=== PATIENT | female | born 1930 | race Two or more races ===

== ENCOUNTER 2019-11-01 10:02 | Inpatient (IN) | payer OTHER, MEDICAID ==
[~2019-11-01] VITALS: Ht 167.6 cm; Wt 80.5 kg
[2019-11-01] MEDS ORDERED: FUROSEMIDE 20 MG/2 ML VIAL IV ONE (10:15)
[2019-11-01 10:38] LABS: Basophils # (auto) 0 10 ^3/uL (0-0.2); Basophils % (auto) 0.5 % (0.0-2.0); Eosinophils # (auto) 0.1 10 ^3/uL (0-0.8); Eosinophils % (auto) 0.9 % (0.0-7.0); Hemoglobin 11.5 g/dL (13.5-17.5); Lymphocytes # (auto) 0.8 10 ^3/uL (0.4-5.4); Lymphocytes % (auto) 8.7 % (10.0-50.0); Mean Corpuscular Hemoglobin 27.3 pg (28.0-32.0); Mean Corpuscular Volume 85.4 fL (80.0-100.0); Monocytes # (auto) 0.8 10 ^3/uL (0-1.3); Monocytes % (auto) 8.5 % (0.0-12.0); Neutrophils # (auto) 7.5 10 ^3/uL (1.6-8.6); Neutrophils % (auto) 81.4 % (37.0-80.0); Platelet Count (auto) 210 10^3/uL (140-450); Red Blood Cells 4.21 10^6/uL (4.5-5.90); Red Cell Distribution Width 14.7 % (11.8-14.3); White Blood Cell 9.2 10^3/uL (4.4-10.8)
[2019-11-01 10:53] LABS: Albumin 3.6 g/dL (3.4-5.0); Anion Gap 7 (5-15); Blood Urea Nitrogen 15 mg/dL (7-18); Calcium 8.4 mg/dL (8.5-10.1); Carbon Dioxide 24 mmol/L (21-32); Chloride 107 mmol/L (98-107); Glucose 91 mg/dL (74-106); Potassium 4.2 mmol/L (3.5-5.1); Sodium 138 mmol/L (136-145)
[2019-11-01 11:00] LABS: Alanine Aminotransferase 19 U/L (16-61); Alkaline Phosphatase 72 U/L (45-117); Aspartate Aminotransferase 23 U/L (15-37); BUN/Creatinine Ratio 14.9; Bilirubin, Total 1.6 mg/dL (0.2-1.0); GFR African American 90 mL/min; GFR Non-African American 74 mL/min; Total Protein 7.2 g/dL (6.4-8.2)
[2019-11-01 11:55] LABS: Urine WBC None Seen /hpf (0 - 3)
[2019-11-01] MEDS ORDERED: HYDROmorphone HCL 2 MG/ML VL IV ONE (12:00)
[2019-11-01] MEDS ORDERED: ONDANSETRON HCL 4 MG/2 ML VIAL IV ONE (12:00)
[2019-11-01 12:06] LABS: Urine Bacteria NONE SEEN /hpf (None Seen); Urine Blood Negative /uL (Negative); Urine Specific Gravity 1.006 (1.001-1.035)
[2019-11-01] MEDS ORDERED: MORPHINE SULF INJ 2 MG/ML SYRINGE 1ML IV PRN (12:15)
[2019-11-01] MEDS ORDERED: NITROGLYCERIN 0.4 MG SL TAB SL PRN (12:15)
[2019-11-01] MEDS ORDERED: hydrALAZINE HCL 20 MG/ML VL IV PRN (12:30)
[2019-11-01] MEDS ORDERED: ONDANSETRON HCL 4 MG/2 ML VIAL IV PRN (12:30)
[2019-11-01] MEDS ORDERED: ACETAMINOPHEN 500 MG TAB PO PRN (12:30)
[2019-11-01 16:33] VITALS: BP 145/81
[2019-11-01 18:02] VITALS: BP 145/81
--- NOTE | 2019-11-01 19:33 | NUR ---
Opening Shift Note Assumed care of patient, awake and alert. No S/S of distress/SOB or pain. Instructed on POC and to call for assist PRN, will continue to monitor for changes Q1hr and PRN.
[2019-11-01] MEDS ORDERED: METO25TA93 PO (19:54)
[2019-11-01] MEDS ORDERED: MEMA1TAB5 PO (19:54)
[2019-11-01] MEDS ORDERED: LEVO25TA6 PO (19:54)
[2019-11-01] MEDS ORDERED: PANT1INJ3 IV (19:54)
[2019-11-01] MEDS ORDERED: ASPI-404 PO (19:54)
[2019-11-01] MEDS ORDERED: POTA10TA51 PO (19:54)
[2019-11-01] MEDS ORDERED: FURO1TAB31 PO (19:54)
[2019-11-01] MEDS ORDERED: PAR20T PO (19:54)
--- NOTE | 2019-11-01 19:55 | NUR ---
RE Pain Patient stated that headache went away, no pain at the moment.
[2019-11-01 20:00] VITALS: BP 137/69
[2019-11-01 21:44] VITALS: BP 137/69
[2019-11-01] MEDS: METOPROLOL TARTRATE 25 MG TAB PO SCH (21:48)
[2019-11-01] MEDS ORDERED: ATORVASTATIN 20 MG TAB PO SCH (22:00)
[2019-11-02 05:18] VITALS: BP 150/74
--- NOTE | 2019-11-02 05:29 | NUR ---
EKG EKG done, patient tolerated well.
[2019-11-02 06:34] LABS: Basophils # (auto) 0 10 ^3/uL (0-0.2); Basophils % (auto) 0.6 % (0.0-2.0); Eosinophils # (auto) 0.1 10 ^3/uL (0-0.8); Eosinophils % (auto) 1.5 % (0.0-7.0); Hematocrit 33.8 % (36.0-46.0); Hemoglobin 10.8 g/dL (12.2-16.2); Lymphocytes # (auto) 0.7 10 ^3/uL (0.4-5.4); Lymphocytes % (auto) 15.3 % (10.0-50.0); Mean Corpuscular Hemoglobin 27.3 pg (28.0-32.0); Mean Corpuscular Hgb Conc. 32.1 g/dL (32.0-36.0); Mean Corpuscular Volume 85.1 fL (80.0-100.0); Monocytes # (auto) 0.6 10 ^3/uL (0-1.3); Monocytes % (auto) 11.8 % (0.0-12.0); Neutrophils # (auto) 3.4 10 ^3/uL (1.6-8.6); Neutrophils % (auto) 70.8 % (37.0-80.0); Platelet Count (auto) 179 10^3/uL (140-450); Red Blood Cells 3.97 10^6/uL (4.0-5.20); Red Cell Distribution Width 14.4 % (11.8-14.3); White Blood Cell 4.8 10^3/uL (4.4-10.8)
[2019-11-02 06:52] LABS: Albumin 3.1 g/dL (3.4-5.0); BUN/Creatinine Ratio 15.3; Calcium 8.3 mg/dL (8.5-10.1); Potassium 3.6 mmol/L (3.5-5.1)
[2019-11-02 06:54] LABS: Bilirubin, Total 1.9 mg/dL (0.2-1.0); Total Protein 6.3 g/dL (6.4-8.2)
--- NOTE | 2019-11-02 07:13 | NUR ---
Closing Note Endorsed care to day shift nurse.
[2019-11-02 08:00] VITALS: BP 134/93
[2019-11-02 09:00] VITALS: BP 134/93
[2019-11-02] MEDS: METOPROLOL TARTRATE 25 MG TAB PO SCH (09:42)
[2019-11-02] MEDS ORDERED: FUROSEMIDE 20 MG/2 ML VIAL IV SCH (10:00)
[2019-11-02] MEDS ORDERED: ASPirin-EC 81 mg tab PO SCH (10:00)
[2019-11-02] MEDS ORDERED: LISINOPRIL 10 MG TAB PO SCH (10:00)
[2019-11-02] MEDS ORDERED: FUROSEMIDE 100 MG/10ML VIAL IV SCH (10:00)
[2019-11-02] MEDS ORDERED: FAMOTIDINE 20 MG TAB PO SCH (10:00)
[2019-11-02] MEDS ORDERED: MEMANTINE HCL 5 MG TAB PO SCH (10:00)
[2019-11-02 12:42] VITALS: BP 125/74
--- NOTE | 2019-11-02 12:55 | NUR ---
PATIENTS DAUGHTER, MACHELLE, CALLED FOR UPDATE ON PATIENTS STATUS. PROVIDED UPDATED INFO.
--- NOTE | 2019-11-02 13:30 | NUR ---
DR LAST BEDSIDE WITH PATIENT DISCUSSING PLAN OF CARE
[2019-11-02 14:50] VITALS: BP 125/74
--- NOTE | 2019-11-02 15:00 | NUR ---
PATIENT AND PATIENTS DAUGHTER, MACHELLE, HAVE DECLINED HOME HEALTH SERVICE FOR SAFETY EVAL AT HOME. CHRISTI HANKINS IN [facility].
--- NOTE | 2019-11-02 15:41 | NUR ---
Received Linen Clerk referral to arrange pt's Home Health for safety evaluation. The referral was faxed to [facility]. [facility] was arranging the Home Health when the family called and the daughter declined to accept the service. [facility] was notified that family declined. Pt lives with daughter Yoselin. According to the daughter pt has 24 hour care. Pt does need assistance at home. The daughter is the POA. Pt has a walker and a wheelchair. Her primary physician is Dr. Dale.
--- NOTE | 2019-11-02 15:50 | NUR ---
Discharge instructions given as ordered. Encourage to follow up with PMD as instructed. Informed patient, and patients daughter, Yoselin, to call PCP for follow up appt. in 1 week. All questions and concerns addressed. Patient verbalized understanding. Medication reconciliation form completed and copy given to patient. Home medications held in Pharmacy returned to patient, and patient refused needed vaccines. IV removed with catheter intact and pressure dressing applied. Telemetry unit returned to ICU. Patient taken to vehicle via wheelchair with all personal belongings, accompanied by staff member. No distress noted at time of departure.
== END 2019-11-02 15:50 | disposition home or self-care (01) | DRG 292 ==
LOC: ER 10:02 → TELE 10:03 → EDSEX 10:03 → TELE-WESTW 14:00
PROVIDERS: ADMIT Nurse Practitioner Acute Care; ATTEND Internal Medicine Geriatric Medicine
DX: I11.0 Hypertensive heart disease with heart failure (principal); I48.20 Chronic atrial fibrillation, unspecified; I50.43 Acute on chronic combined systolic (congestive) and diastolic (congestive) heart failure; D64.9 Anemia, unspecified; F02.80 Dementia in other diseases classified elsewhere, unspecified severity, without behavioral disturbance, psychotic disturbance, mood disturbance, and anxiety; G30.9 Alzheimer's disease, unspecified; K21.9 Gastro-esophageal reflux disease without esophagitis; Z79.82 Long term (current) use of aspirin; Z90.49 Acquired absence of other specified parts of digestive tract
CPT/HCPCS: 36415; 71045; 80053; 81001; 82728; 83615; 83880; 84443; 84484; 85025; 86141; 87070; 87804; 87880; 93005; 93306; 96374; G0378

== ENCOUNTER 2020-04-12 02:52 | Emergency (ER) | payer OTHER, MEDICAID ==
[~2020-04-12] VITALS: Ht 162.6 cm; Wt 77.1 kg
[~2020-04-12 02:52] MED LIST: ASPI-543 PO; FURO1TAB31 PO; LEVO25TA6 PO; MEMA1TAB5 PO; METO25TA93 PO; PANT1INJ3 IV; PAR20T PO; POTA10TA51 PO
[2020-04-12 04:12] LABS: Basophils # (auto) 0 10 ^3/uL (0-0.2); Eosinophils # (auto) 0.1 10 ^3/uL (0-0.8); Hemoglobin 11.1 g/dL (12.2-16.2); Lymphocytes # (auto) 1.1 10 ^3/uL (0.4-5.4); Monocytes # (auto) 0.6 10 ^3/uL (0-1.3); Monocytes % (auto) 9.7 % (0.0-12.0)
[2020-04-12 04:14] LABS: Basophils % (auto) 0.6 % (0.0-2.0); Eosinophils % (auto) 0.8 % (0.0-7.0); Hematocrit 34.6 % (36.0-46.0); Lymphocytes % (auto) 16.5 % (10.0-50.0); Mean Corpuscular Hemoglobin 26.9 pg (28.0-32.0); Mean Corpuscular Hgb Conc. 32.1 g/dL (32.0-36.0); Mean Corpuscular Volume 83.8 fL (80.0-100.0); Neutrophils # (auto) 4.9 10 ^3/uL (1.6-8.6); Neutrophils % (auto) 72.4 % (37.0-80.0); Platelet Count (auto) 208 10^3/uL (140-450); Red Blood Cells 4.13 10^6/uL (4.0-5.20); Red Cell Distribution Width 17.9 % (11.8-14.3); White Blood Cell 6.7 10^3/uL (4.4-10.8)
[2020-04-12 04:30] LABS: Alanine Aminotransferase 18 U/L (13-56); Albumin 3.6 g/dL (3.4-5.0); Amylase 43 U/L (25-115); Anion Gap 2 (5-15); Blood Urea Nitrogen 16 mg/dL (7-18); Calcium 8.5 mg/dL (8.5-10.1); Carbon Dioxide 29 mmol/L (21-32); Chloride 109 mmol/L (98-107); Glucose 101 mg/dL (74-106); Lipase 225 U/L (73-393); Potassium 3.9 mmol/L (3.5-5.1); Sodium 140 mmol/L (136-145)
[2020-04-12 04:36] LABS: Alkaline Phosphatase 66 U/L (45-117); Aspartate Aminotransferase 16 U/L (15-37); BUN/Creatinine Ratio 16.7; Bilirubin, Total 1.1 mg/dL (0.2-1.0); GFR African American 71 mL/min; GFR Non-African American 58 mL/min; Total Protein 6.9 g/dL (6.4-8.2)
[2020-04-12 09:38] LABS: Urine Bacteria NONE SEEN /hpf (None Seen); Urine Blood 2+ /uL (Negative); Urine Specific Gravity 1.021 (1.001-1.035); Urine WBC 1 /hpf (0 - 5)
[2020-04-12 10:01] VITALS: BP 144/76
== END 2020-04-12 13:01 | disposition home or self-care (01) ==
LOC: EDUNIT# 02:52 → EDBD 02:52 → ER 02:57
DX: R33.9 Retention of urine, unspecified (principal); I48.91 Unspecified atrial fibrillation; I10 Essential (primary) hypertension
CPT/HCPCS: 36415; 51702; 74176; 80053; 81001; 82150; 83690; 84484; 85025; 93005